=== PATIENT | female | born 1945 | race Caucasian/White ===

== ENCOUNTER 2024-09-06 06:07 | Day surgery (SDC) | payer MEDICARE, OTHER ==
[2024-09-05 11:40] LABS: BASOPHILS % (AUTO) 0.5 % (0-1); EOSINOPHILS # (AUTO) 0.1 X10'3 (0-0.9); EOSINOPHILS % (AUTO) 2.2 % (0-6); HEMATOCRIT 39.5 % (35.0-45.0); LYMPHOCYTES % (AUTO) 15.7 % (21-51); MEAN CORPUSCULAR HEMOGLOBIN 28.7 PG (27.0-31.0); MEAN CORPUSCULAR HGB CONC 32.9 g/dL (33.0-36.5); MEAN CORPUSCULAR VOLUME 87.1 FL (78-98); MEAN PLATELET VOLUME 8.2 FL (7.4-10.4); MONOCYTES # (AUTO) 0.4 X10'3 (0-0.9); MONOCYTES % (AUTO) 6.4 % (2-12); NEUTROPHILS # (AUTO) 4.8 X10'3 (1.8-7.7); NEUTROPHILS % (AUTO) 75.2 % (42-75); PLATELET COUNT 230 X10'3 (140-440); RED BLOOD COUNT 4.53 X10'6 (4.20-5.60); RED CELL DISTRIBUTION WIDTH 14.9 % (11.5-14.5); WHITE BLOOD COUNT 6.4 X10'3 (4.5-11.0)
[2024-09-05 11:52] LABS: ALBUMIN 3.7 G/DL (3.4-5.0); ANION GAP 4 (8-16); APTT 27 SECONDS (22-32); BLOOD UREA NITROGEN 17 MG/DL (7-18); BUN/CREATININE RATIO 25.4 (10.0-20.0); CALCIUM 8.8 MG/DL (8.5-10.1); CHLORIDE 105 MMOL/L (99-107); CREATININE 0.67 MG/DL (0.40-0.90); GLUCOSE 97 MG/DL (70-104); POTASSIUM 4.1 MMOL/L (3.5-5.1); PROTHROMBIN TIME 10.7 SECONDS (9.0-12.0); SODIUM 144 MMOL/L (135-145); TOTAL CARBON DIOXIDE 35.4 MMOL/L (24-32); eGFR 85 ML/MIN
[~2024-09-06] VITALS: Ht 160 cm; Wt 96.1 kg
[2024-09-06] VITALS (13 sets, daily range): BP systolic 106–143; BP diastolic 43–55; PULSE 60–80; RESP 12–20; TEMP 98; O2SAT 93–99
[~2024-09-06 06:07] MED LIST: ATEN50TA PO; CALC600T35 PO; CHOL100046 PO; DICL25TA2 PO; FERR-119 PO; HYDR-3965 PO; HYDR200T73 PO; MAGN30TA2 PO; OMEP20TA43 PO; PREG75CA30 PO; SALM1CAP4 PO; SULF500T9 PO; TRAM50TA2 PO; TRAZ-89 PO; ZOLP5TAB2 PO
[2024-09-06] MEDS ORDERED: METO-384 PO (06:49)
[2024-09-06] MEDS ORDERED: LORA10TA7 PO (06:49)
[2024-09-06] MEDS ORDERED: CHOL500044 PO (06:49)
[2024-09-06] MEDS ORDERED: MAGN250T11 PO (06:49)
[2024-09-06] MEDS ORDERED: DICL50TA8 PO (06:49)
[2024-09-06] MEDS: diphenhydrAMINE 25mg capsule PO PRN (07:26)
[2024-09-06] MEDS: LORazepam 0.5 MG tablet PO PRN (07:26)
[2024-09-06] MEDS: normal saline 1,000 ML IV SCH (07:27)
[2024-09-06] MEDS ORDERED: LIDOcaine 1% (10mg/ml) 2ml vial ONE (07:33)
[2024-09-06] MEDS ORDERED: verapamil 2.5 mg/ml inj IV ONE (07:34)
[2024-09-06] MEDS ORDERED: nitroGLYCERIN 500mcg/5mL D5W 5 ML IV ONE (07:34)
[2024-09-06] MEDS ORDERED: heparin 1,000unit/ml 10ml vial 10 ML ONE (07:34)
[2024-09-06] MEDS ORDERED: midazolam 1 mg/ML 2ml injection ONE (07:34)
[2024-09-06] MEDS ORDERED: fentaNYL/PF 50MCG/1 ML 2ML syringe ONE (07:34)
[2024-09-06] MEDS ORDERED: iohexol 350MG/ML 100ml bottle IV ONE (07:35)
[2024-09-06] MEDS ORDERED: iohexol 350 MG/ML 50ML vial IV ONE (07:35)
[2024-09-06] MEDS ORDERED: HYDROcodone/acetaminophen 5mg/325mg tablet PO PRN (09:35)
[2024-09-06] MEDS ORDERED: normal saline 1000ml 1,000 ML IV SCH (09:35)
[2024-09-06] MEDS ORDERED: HYDROcodone/acetaminophen 10/325mg tab PO PRN (09:35)
[2024-09-06 11:13] LABS: ISTAT HGB MIX 12.2 g/dl (12.0-16.0); ISTAT Hct MIX 36 %PCV (35-45); ISTAT O2 SATURATION MIX VENOUS 63 % (60-80); ISTAT SOURCE VEN
[2024-09-06 13:08] LABS: ISTAT HGB ART 12.2 g/dl (12.0-16.0); ISTAT Hct ART 36 %PCV (35-45); ISTAT O2 SATURATION ARTERIAL 86 % (95-98); ISTAT SOURCE ART
== END 2024-09-06 15:05 | disposition home or self-care (01) ==
LOC: SSTAY O 06:07
PROVIDERS: ATTEND Internal Medicine Cardiovascular Disease
DX: R94.39 Abnormal result of other cardiovascular function study (principal); I25.10 Atherosclerotic heart disease of native coronary artery without angina pectoris; R06.00 Dyspnea, unspecified; R53.83 Other fatigue; I10 Essential (primary) hypertension; E78.5 Hyperlipidemia, unspecified; F41.9 Anxiety disorder, unspecified; G47.33 Obstructive sleep apnea (adult) (pediatric); M06.9 Rheumatoid arthritis, unspecified; Z98.51 Tubal ligation status; Z98.42 Cataract extraction status, left eye; Z98.41 Cataract extraction status, right eye; Z98.890 Other specified postprocedural states; Z79.899 Other long term (current) drug therapy; Z82.49 Family history of ischemic heart disease and other diseases of the circulatory system
CPT/HCPCS: 36415; 80048; 82803; 85014; 85025; 85610; 85730; 93005; 93460; 99152; 99153; A4620; A6258; A6402; C1725; C1751; C1894; J1644; J2003; J2250; J3010; J3490; J7030; Q0163; Q9967; Z7610; 76937; A6449

== ENCOUNTER 2025-05-31 14:03 | Outpatient (CLI) | payer MEDICARE, OTHER ==
[~2025-05-31] VITALS: Ht 160 cm; Wt 91.2 kg
[~2025-05-31 14:03] MED LIST changes: -ATEN50TA PO; -CHOL100046 PO; +CHOL500044 PO; -DICL25TA2 PO; +DICL50TA8 PO; -FERR-119 PO; -HYDR-3965 PO; -HYDR200T73 PO; +LORA10TA7 PO; +MAGN250T11 PO; -MAGN30TA2 PO; +METO-384 PO; -PREG75CA30 PO; -SULF500T9 PO
[2025-05-31 14:30] LABS: TOTAL HEMOGLOBIN 12.6 G/dl (12.0-16.0)
[2025-05-31] MEDS: albuterol 2.5 MG/3 ML nebule NEB ONE (15:06)
[2025-05-31 15:10] VITALS: PULSE 57; RESP 18; O2SAT 97
[2025-05-31 15:28] VITALS: PULSE 59; RESP 16
--- NOTE | 2025-06-05 13:46 | PROCEDURE NOTE - Respiratory ---
Procedure Note-Respiratory Providers to Copies To 1: SB DAMIAN MD Procedure Name: This is a complete pulmonary function study dated May 31, 2025. Hemoglobin measurement was done as part of the study. Spirometry measurements: There is substantial reduction in both the forced vital capacity and the FEV1 measurements. The FEV1 ratio is slightly elevated. All of the flow rate measurements are normal. After bronchodilator was administered, there is slight improvement in some of the flow rate measurements. Spirometry suggests a restrictive ventilatory defect. Lung volume measurements: The total lung capacity and the functional residual capacity measurements are at the lower limit of normal. The residual volume is normal. 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 Lung diffusion measurement: The DLCO measurement is slightly reduced. It is noted that the alveolar volume measurement is reduced where as the KVO measurement is in the normal range. It is noted that the hemoglobin measurement is normal. Airway resistance measurement: The airway resistance shows no elevation. Overall conclusion: This study shows abnormality. 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 There is also evidence for mild reduction of the DLCO measurement. 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 Change from amiodarone therapy should be considered in this patient. We have no previous studies for comparison. MADELEINE BELTRAN MD Jun 05, 2025 13:46
== END 2025-05-31 23:59 | disposition home or self-care (01) ==
LOC: RT 14:03
PROVIDERS: ATTEND Internal Medicine Cardiovascular Disease
DX: R06.02 Shortness of breath (principal); Z79.2 Long term (current) use of antibiotics
CPT/HCPCS: 85018; 94060; 94727; 94729; 94760